=== PATIENT | female | born 1985 | race Caucasian/White ===

== ENCOUNTER 2016-11-11 15:04 | Emergency (ER) | payer MEDICARE, OTHER ==
[2016-11-11 15:44] LABS: BILIRUBIN NEGATIVE (NEGATIVE); BLOOD TRACE-INTACT Ery/uL (NEGATIVE); CLARITY CLEAR (CLEAR); COLOR YELLOW (YELLOW); GLUCOSE (U) NORMAL (NORMAL); KETONE (U) NEGATIVE (NEGATIVE); LEUKOCYTES NEGATIVE Leu/uL (NEGATIVE); NITRITE NEGATIVE (NEGATIVE); PROTEIN NEGATIVE (NEGATIVE); SPECIFIC GRAVITY >=1.030 (1.001-1.030); UROBILINOGEN 0.2 mg/dL (0.2-1.0)
[2016-11-11 15:45] LABS: BASOPHIL 0.7 % (0-2); EOSINOPHIL 1.7 % (0-5); HCT 39.6 % (37.0-47.0); HGB 12.8 g/dl (12.5-16.0); MCH 26.1 pg (25.0-31.0); MCHC 32.3 g/dL (32.0-36.0); MCV 80.8 fL (78.0-100.0); MONOCYTE 10.9 % (0-12); MPV 10.1 fL (6.0-9.5); NEUTROPHIL 49.7 % (41-80); PLT 363 K/uL (150-400); RDW 15.4 % (11.5-14.0); WBC 6.1 K/uL (4.0-10.5)
[2016-11-11 15:52] LABS: URINARY RBC RARE
[2016-11-11 15:53] LABS: BACTERIA TRACE; MUCOUS MODERATE; SQUAMOUS EPITHELIAL CELLS RARE
[2016-11-11 16:04] LABS: ALBUMIN 4.4 g/dL (3.5-5.0); BILIRUBIN - TOTAL 0.2 mg/dL (0.1-1.0); GLOBULIN (CALCULATION) 2.9 g/dL (2.2-4.2); POTASSIUM 3.7 mmol/L (3.5-5.1); TOTAL PROTEIN 7.3 g/dL (6.4-8.3)
== END 2016-11-11 17:15 | disposition home or self-care (01) ==
LOC: FER 15:04
PROVIDERS: Nurse Practitioner Family
DX: N39.0 Urinary tract infection, site not specified (principal); K21.9 Gastro-esophageal reflux disease without esophagitis; F31.9 Bipolar disorder, unspecified; G40.909 Epilepsy, unspecified, not intractable, without status epilepticus; Z88.8 Allergy status to other drugs, medicaments and biological substances; Z79.899 Other long term (current) drug therapy
CPT/HCPCS: 36415; 80053; 81001; 82150; 83690; 85025; J2405

== ENCOUNTER 2020-09-03 12:04 | Emergency (ER) | payer MEDICARE, OTHER ==
[~2020-09-03 12:04] MED LIST: ANTIVERT25 MG PO; AUGMENTIN250 MG PO; BACLOFEN 10MG T10 MG PO; BACTRIM DS TAB1 EACH PO; BENTYL10 MG PO; BUSPAR5 MG PO; CARTIA XT120 MG PO; CHLORZOXAZONE500 MG PO; COMPAZINE10 MG PO; COMPAZINE25 MG PR; FIORICET1 EACH PO; FLEXERIL10 MG PO; HEARTBURN TREAT15 MG PO; KEPPRA1000 MG PO; LAMICTAL100 MG PO; LODINE400 MG PO; LOPRESSOR25 MG PO; LYRICA 50MG CAP50 MG PO; LYRICA100 MG PO; LYRICA25 MG PO; LYRICA75 MG PO; MACROBID100 MG PO; MEDROL 4MG DOSEP4 MG PO; MELOXICAM15 MG PO; MOBIC7.5 MG PO; MONO-LINYAH 281 EACH PO; NAPROXEN500 MG PO; NITROFURANTOIN100 M1 PO; NORCO 5-325 TA1 EACH PO; NORCO 5/3251 EACH PO; NORVASC2.5 MG PO; PHENERGAN25 M1 PO; PRILOSEC20 MG PO; PROMETHEGA12.5 MG/SU PR; PROZAC20 MG PO; REGLAN10 MG PO; REGLAN5 MG PO; REMERON15 MG PO; RIZATRIPTAN10 MG PO; ROBAXIN500 MG PO; SEROQUEL 100MG100 MG PO; SINGULAIR10 MG PO; TESSALON PERLE100 MG PO; TOPAMAX50 MG PO; VENTOLIN HFA IN18 GM INH; XANAX0.5 MG PO; ZANTAC150 MG PO; ZOFRAN ODT4 MG PO; ZOFRAN4 MG PO; ZPAK PO
[2020-09-03] MEDS ORDERED: DICLOFENAC SODI75 MG PO (13:41)
[2020-11-11] MEDS ORDERED: MELATONIN3 MG PO (15:35)
[2020-11-11] MEDS ORDERED: DICLOFENAC SODI50 MG PO (15:35)
[2021-01-28] MEDS ORDERED: VOLTAREN **OUT50 MG PO (15:06)
== END 2020-09-03 14:05 | disposition home or self-care (01) ==
LOC: FER 12:04
DX: S30.850A Superficial foreign body of lower back and pelvis, initial encounter (principal); G89.29 Other chronic pain; R11.2 Nausea with vomiting, unspecified; Z88.1 Allergy status to other antibiotic agents; W45.8XXA Other foreign body or object entering through skin, initial encounter
CPT/HCPCS: 99283; J1885

== ENCOUNTER 2020-10-26 20:21 | Emergency (ER) | payer MEDICARE, OTHER ==
[~2020-10-26 20:21] MED LIST changes: +DICLOFENAC SODI75 MG PO
[2020-11-11] MEDS ORDERED: MELATONIN3 MG PO (15:35)
[2020-11-11] MEDS ORDERED: DICLOFENAC SODI50 MG PO (15:35)
[2021-01-28] MEDS ORDERED: VOLTAREN **OUT50 MG PO (15:06)
== END 2020-10-26 22:33 | disposition home or self-care (01) ==
LOC: FER 20:21
DX: S16.1XXA Strain of muscle, fascia and tendon at neck level, initial encounter (principal); R51.9 Headache, unspecified; I10 Essential (primary) hypertension; G40.909 Epilepsy, unspecified, not intractable, without status epilepticus; Z88.8 Allergy status to other drugs, medicaments and biological substances; Z79.899 Other long term (current) drug therapy; W18.2XXA Fall in (into) shower or empty bathtub, initial encounter
CPT/HCPCS: 96372; 99283; J1100; J1885

== ENCOUNTER 2021-02-02 17:55 | Emergency (ER) | payer MEDICARE, OTHER ==
[~2021-02-02 17:55] MED LIST changes: +DICLOFENAC SODI50 MG PO; +MELATONIN3 MG PO; +VOLTAREN **OUT50 MG PO
[2021-02-02 19:08] LABS: BASOPHIL 0.6 % (0-2); EOSINOPHIL 0 % (0-5); HCT 38.1 % (37.0-47.0); HGB 11.9 g/dl (12.5-16.0); LYMPHOCYTE 25.8 % (15-48); MCH 23.9 pg (25.0-31.0); MCHC 31.2 g/dL (32.0-36.0); MCV 76.5 fL (78.0-100.0); MONOCYTE 8.6 % (0-12); NEUTROPHIL 64.8 % (41-80); NRBC 0; PLT 411 K/uL (150-400); RBC 4.98 M/uL (4.20-5.40); WBC 9.5 K/uL (4.0-10.5)
[2021-02-02 19:30] LABS: CREATININE 1.18 mg/dL (0.51-0.95)
[2021-02-02] MEDS ORDERED: FIORICET1 EACH PO (20:42)
== END 2021-02-02 21:14 | disposition home or self-care (01) ==
LOC: FER 17:55
PROVIDERS: Nurse Practitioner Family
DX: R51.9 Headache, unspecified (principal); E11.65 Type 2 diabetes mellitus with hyperglycemia; R42 Dizziness and giddiness; I10 Essential (primary) hypertension; Z79.899 Other long term (current) drug therapy
CPT/HCPCS: 36415; 80048; 85025; J1885; J2405; J7030

== ENCOUNTER 2021-02-04 19:18 | Day surgery (SDCO) | payer MEDICARE, OTHER ==
[~2021-02-04] VITALS: Ht 157.5 cm; Wt 126.2 kg
[2021-02-04 21:36] LABS: BASOPHIL 0.8 % (0-2); EOSINOPHIL 0 % (0-5); HCT 36.7 % (37.0-47.0); HGB 11.5 g/dl (12.5-16.0); LYMPHOCYTE 25.8 % (15-48); MCH 23.8 pg (25.0-31.0); MCHC 31.3 g/dL (32.0-36.0); MCV 75.8 fL (78.0-100.0); MONOCYTE 7.5 % (0-12); MPV 9.9 fL (6.0-9.5); NEUTROPHIL 65.7 % (41-80); NRBC 0; PLT 381 K/uL (150-400); RBC 4.84 M/uL (4.20-5.40); WBC 9.2 K/uL (4.0-10.5)
[2021-02-04 21:59] LABS: CREATININE 1.06 mg/dL (0.51-0.95); POTASSIUM 4.2 mmol/L (3.5-5.1)
[2021-02-05] MEDS ORDERED: PHENERGAN25 M1 PO (03:13)
[2021-02-05] MEDS ORDERED: PERCOCET 5-3251 EACH PO (03:13)
[2021-02-05 04:23] LABS: BILIRUBIN 1+ mg/dL (NEGATIVE); BLOOD NEGATIVE Ery/uL (NEGATIVE); COLOR YELLOW (YELLOW); GLUCOSE (U) NORMAL (NORMAL); LEUKOCYTES NEGATIVE Leu/uL (NEGATIVE); NITRITE NEGATIVE (NEGATIVE); PROTEIN NEGATIVE (NEGATIVE); SPECIFIC GRAVITY >=1.030 (1.001-1.030); UROBILINOGEN 0.2 mg/dL (0.2-1.0)
[2021-02-05 04:25] LABS: CLARITY SLIGHTLY HAZY (CLEAR)
[2021-02-05 05:40] LABS: CREATININE 0.99 mg/dL (0.51-0.95); POTASSIUM 4.6 mmol/L (3.5-5.1)
[2021-02-05 05:41] LABS: ALBUMIN 3.2 g/dL (3.4-5.0); BILIRUBIN - TOTAL 0.5 mg/dL (0.2-1.0); GLOBULIN (CALCULATION) 3.7 g/dL; TOTAL PROTEIN 6.9 g/dL (6.4-8.2)
[2021-02-06 06:24] LABS: BASOPHIL 0.8 % (0-2); EOSINOPHIL 0 % (0-5); HCT 31.1 % (37.0-47.0); HGB 9.5 g/dl (12.5-16.0); LYMPHOCYTE 34.1 % (15-48); MCHC 30.5 g/dL (32.0-36.0); MCV 78.5 fL (78.0-100.0); MONOCYTE 9.5 % (0-12); NEUTROPHIL 55.3 % (41-80); NRBC 0; PLT 304 K/uL (150-400); RBC 3.96 M/uL (4.20-5.40); WBC 7.2 K/uL (4.0-10.5)
[2021-02-06 07:01] LABS: ALBUMIN 3.1 g/dL (3.4-5.0); BILIRUBIN - TOTAL 0.4 mg/dL (0.2-1.0); CREATININE 0.93 mg/dL (0.51-0.95); GLOBULIN (CALCULATION) 3.5 g/dL; MAGNESIUM 2.2 mg/dL (1.8-2.4); POTASSIUM 3.7 mmol/L (3.5-5.1); TOTAL PROTEIN 6.6 g/dL (6.4-8.2)
--- NOTE | 2021-02-06 14:48 | NUR ---
PT. TO D/C HOME THIS DATE. SHE REQUESTS [facility]. NO NEEDS.
[2021-02-06] MEDS ORDERED: MUCINEX 600MG600 MG PO (16:46)
[2021-02-06] MEDS ORDERED: PERCOCET 5-3251 EACH PO (16:46)
[2021-02-06] MEDS ORDERED: CLARITIN10 MG PO (16:46)
== END 2021-02-06 17:40 | disposition home or self-care (01) ==
LOC: FER 19:18 → FTCU 02-05 06:09
PROVIDERS: Emergency Medicine Emergency Medical Services; Hospitalist; Nurse Practitioner Family; ADMIT Internal Medicine
DX: R42 Dizziness and giddiness (principal); R11.2 Nausea with vomiting, unspecified; T21.04XA Burn of unspecified degree of lower back, initial encounter; T79.8XXA Other early complications of trauma, initial encounter; E86.0 Dehydration; R07.89 Other chest pain; I10 Essential (primary) hypertension; G40.909 Epilepsy, unspecified, not intractable, without status epilepticus; G80.9 Cerebral palsy, unspecified; R74.01 Elevation of levels of liver transaminase levels; G89.29 Other chronic pain; M54.9 Dorsalgia, unspecified; K74.60 Unspecified cirrhosis of liver; J45.909 Unspecified asthma, uncomplicated; D64.9 Anemia, unspecified; E66.9 Obesity, unspecified; Z68.43 Body mass index [BMI] 50.0-59.9, adult; Z86.14 Personal history of Methicillin resistant Staphylococcus aureus infection; Z79.899 Other long term (current) drug therapy; Z98.2 Presence of cerebrospinal fluid drainage device; Z20.822 Contact with and (suspected) exposure to COVID-19; X16.XXXA Contact with hot heating appliances, radiators and pipes, initial encounter
CPT/HCPCS: 36415; 36600; 70450; 71250; 80048; 80053; 81003; 82803; 82962; 83605; 83735; 83880; 84484; 85025; 87088; 93005; 96365; 96366; 96375; 96376; C9113; G0378; J1100; J1170; J1650; J1885; J2270; J2550; J7030; J7040; Q0169; U0002

== ENCOUNTER 2021-02-16 16:41 | Emergency (ER) | payer MEDICARE, OTHER ==
[~2021-02-16 16:41] MED LIST changes: +CLARITIN10 MG PO; +MUCINEX 600MG600 MG PO; +PERCOCET 5-3251 EACH PO
[2021-03-25] MEDS ORDERED: CELEBREX 200MG200 MG PO (11:24)
[2021-03-25] MEDS ORDERED: TIZANIDINE HCL2 M1 PO (11:24)
== END 2021-02-16 20:56 | disposition home or self-care (01) ==
LOC: FER 16:41
DX: T21.03XD Burn of unspecified degree of upper back, subsequent encounter (principal); T21.04XD Burn of unspecified degree of lower back, subsequent encounter; I10 Essential (primary) hypertension; E10.9 Type 1 diabetes mellitus without complications
CPT/HCPCS: 99282

== ENCOUNTER 2021-02-18 20:04 | Emergency (ER) | payer MEDICARE, OTHER ==
[2021-02-18 22:26] LABS: BILIRUBIN NEGATIVE (NEGATIVE); BLOOD NEGATIVE Ery/uL (NEGATIVE); CLARITY CLEAR (CLEAR); COLOR YELLOW (YELLOW); GLUCOSE (U) NORMAL (NORMAL); LEUKOCYTES NEGATIVE Leu/uL (NEGATIVE); NITRITE NEGATIVE (NEGATIVE); PROTEIN NEGATIVE (NEGATIVE); UROBILINOGEN 0.2 mg/dL (0.2-1.0)
[2021-02-18 23:03] LABS: BASOPHIL 0.4 % (0-2); EOSINOPHIL 0 % (0-5); HGB 10.9 g/dl (12.5-16.0); LYMPHOCYTE 30.4 % (15-48); MCH 23.5 pg (25.0-31.0); MCHC 31.1 g/dL (32.0-36.0); MCV 75.6 fL (78.0-100.0); MONOCYTE 7.9 % (0-12); MPV 10.1 fL (6.0-9.5); NEUTROPHIL 61.1 % (41-80); NRBC 0; PLT 372 K/uL (150-400); RBC 4.63 M/uL (4.20-5.40); RDW 17.7 % (11.5-14.0); WBC 8.4 K/uL (4.0-10.5)
[2021-02-18 23:21] LABS: CREATININE 0.94 mg/dL (0.51-0.95); POTASSIUM 3.5 mmol/L (3.5-5.1)
[2021-03-25] MEDS ORDERED: TIZANIDINE HCL2 M1 PO (11:24)
[2021-03-25] MEDS ORDERED: CELEBREX 200MG200 MG PO (11:24)
== END 2021-02-19 00:08 | disposition home or self-care (01) ==
LOC: FER 20:04
PROVIDERS: Nurse Practitioner Family
DX: R10.2 Pelvic and perineal pain (principal); R30.0 Dysuria; G40.909 Epilepsy, unspecified, not intractable, without status epilepticus; E11.9 Type 2 diabetes mellitus without complications; I10 Essential (primary) hypertension; Z98.2 Presence of cerebrospinal fluid drainage device; Z79.899 Other long term (current) drug therapy; Z90.49 Acquired absence of other specified parts of digestive tract
CPT/HCPCS: 36415; 80048; 81003; 85025; J2270; J7030

== ENCOUNTER 2021-03-09 23:01 | Emergency (ER) | payer MEDICARE, OTHER ==
[2021-03-09 23:54] LABS: BASOPHIL 0.6 % (0-2); EOSINOPHIL 4.1 % (0-5); HCT 40.5 % (37.0-47.0); HGB 12.4 g/dl (12.5-16.0); MCH 23.3 pg (25.0-31.0); MCHC 30.6 g/dL (32.0-36.0); MCV 76.1 fL (78.0-100.0); MONOCYTE 6.7 % (0-12); MPV 9.9 fL (6.0-9.5); NEUTROPHIL 74.4 % (41-80); NRBC 0; PLT 424 K/uL (150-400); RBC 5.32 M/uL (4.20-5.40); RDW 18.9 % (11.5-14.0); WBC 8.9 K/uL (4.0-10.5)
[2021-03-09 23:55] LABS: BILIRUBIN - TOTAL 0.3 mg/dL (0.2-1.0); BUN/CREAT RATIO (CALC) 12.5 RATIO; C-REACTIVE PROTEIN 1.7 mg/dL (<=0.90); CREATININE 1.04 mg/dL (0.51-0.95); GLOBULIN (CALCULATION) 4.2 g/dL; POTASSIUM 3.4 mmol/L (3.5-5.1); TOTAL PROTEIN 8.2 g/dL (6.4-8.2)
[2021-03-10] MEDS ORDERED: PYRIDIUM200 MG PO (02:22)
[2021-03-10] MEDS ORDERED: ONDANSETRON ODT4 MG SL (02:22)
[2021-03-10] MEDS ORDERED: BENTYL10 MG PO (02:22)
[2021-03-10] MEDS ORDERED: VIBRAMYCIN100 MG PO (02:22)
[2021-03-10] MEDS ORDERED: PERCOCET 5-3251 EACH PO (02:22)
[2021-03-10 02:24] LABS: BILIRUBIN 1+ mg/dL (NEGATIVE); BLOOD NEGATIVE Ery/uL (NEGATIVE); CLARITY CLOUDY (CLEAR); COLOR YELLOW (YELLOW); GLUCOSE (U) NORMAL (NORMAL); LEUKOCYTES NEGATIVE Leu/uL (NEGATIVE); NITRITE NEGATIVE (NEGATIVE); PROTEIN NEGATIVE (NEGATIVE); SPECIFIC GRAVITY >=1.030 (1.001-1.030); UROBILINOGEN 0.2 mg/dL (0.2-1.0); pH 5.5 (5.0-9.0)
[2021-03-25] MEDS ORDERED: CELEBREX 200MG200 MG PO (11:24)
[2021-03-25] MEDS ORDERED: TIZANIDINE HCL2 M1 PO (11:24)
== END 2021-03-10 02:37 | disposition home or self-care (01) ==
LOC: FER 23:01
PROVIDERS: Emergency Medicine Emergency Medical Services
DX: N30.00 Acute cystitis without hematuria (principal); R19.7 Diarrhea, unspecified; R51.9 Headache, unspecified; Z20.822 Contact with and (suspected) exposure to COVID-19; I10 Essential (primary) hypertension; J45.909 Unspecified asthma, uncomplicated
CPT/HCPCS: 36415; 74018; 80053; 81003; 85025; 86140; 96372; J0500; J0696; J1170; J1885; J2405; J7120; U0002

== ENCOUNTER 2021-03-27 11:08 | Emergency (ER) | payer MEDICARE, OTHER ==
[~2021-03-27 11:08] MED LIST changes: +CELEBREX 200MG200 MG PO; +ONDANSETRON ODT4 MG SL; +PYRIDIUM200 MG PO; +TIZANIDINE HCL2 M1 PO; +VIBRAMYCIN100 MG PO
[2021-03-27 13:55] LABS: BILIRUBIN NEGATIVE (NEGATIVE); BLOOD NEGATIVE Ery/uL (NEGATIVE); CLARITY CLEAR (CLEAR); COLOR YELLOW (YELLOW); GLUCOSE (U) NORMAL (NORMAL); LEUKOCYTES NEGATIVE Leu/uL (NEGATIVE); NITRITE NEGATIVE (NEGATIVE); PROTEIN NEGATIVE (NEGATIVE); SPECIFIC GRAVITY 1.015 (1.001-1.030); UROBILINOGEN 0.2 mg/dL (0.2-1.0); pH 6.5 (5.0-9.0)
[2021-03-27 14:13] LABS: BASOPHIL 0.7 % (0-2); EOSINOPHIL 2.1 % (0-5); HCT 35.8 % (37.0-47.0); HGB 10.9 g/dl (12.5-16.0); LYMPHOCYTE 37.7 % (15-48); MCHC 30.4 g/dL (32.0-36.0); MCV 75.7 fL (78.0-100.0); MONOCYTE 6.3 % (0-12); NEUTROPHIL 52.7 % (41-80); NRBC 0; PLT 346 K/uL (150-400); RBC 4.73 M/uL (4.20-5.40); WBC 6.1 K/uL (4.0-10.5)
[2021-03-27 14:31] LABS: ALBUMIN 3.2 g/dL (3.4-5.0); BILIRUBIN - TOTAL 0.3 mg/dL (0.2-1.0); BUN/CREAT RATIO (CALC) 28.8 RATIO; CREATININE 0.8 mg/dL (0.51-0.95); GLOBULIN (CALCULATION) 3.7 g/dL; POTASSIUM 4.2 mmol/L (3.5-5.1); TOTAL PROTEIN 6.9 g/dL (6.4-8.2)
== END 2021-03-27 17:50 | disposition home or self-care (01) ==
LOC: FER 11:08
PROVIDERS: Physician Assistant
DX: R10.31 Right lower quadrant pain (principal); R10.32 Left lower quadrant pain; R11.0 Nausea; R19.7 Diarrhea, unspecified; I10 Essential (primary) hypertension; Z90.49 Acquired absence of other specified parts of digestive tract; Z90.89 Acquired absence of other organs
CPT/HCPCS: 36415; 74018; 80053; 81003; 83690; 85025; J1885; Q9967

== ENCOUNTER 2021-04-10 19:11 | Emergency (ER) | payer MEDICARE, OTHER ==
[2021-04-11] MEDS ORDERED: SUMATRIPTAN-NA1 EACH PO (00:54)
== END 2021-04-11 01:05 | disposition home or self-care (01) ==
LOC: FER 19:11
DX: R51.9 Headache, unspecified (principal); Z86.69 Personal history of other diseases of the nervous system and sense organs; Z98.2 Presence of cerebrospinal fluid drainage device; W10.9XXA Fall (on) (from) unspecified stairs and steps, initial encounter; W22.8XXA Striking against or struck by other objects, initial encounter; Y92.009 Unspecified place in unspecified non-institutional (private) residence as the place of occurrence of the external cause
CPT/HCPCS: 70450; 71045; 72125; 74018; J0780; J1200; J1885; J2001; J7030

== ENCOUNTER 2021-04-20 17:40 | Emergency (ER) | payer MEDICARE, OTHER ==
[~2021-04-20 17:40] MED LIST changes: +SUMATRIPTAN-NA1 EACH PO
[2021-04-20 20:58] LABS: BASOPHIL 0.4 % (0-2); EOSINOPHIL 0 % (0-5); HCT 36.7 % (37.0-47.0); LYMPHOCYTE 21.9 % (15-48); MCH 23.4 pg (25.0-31.0); MCV 77.9 fL (78.0-100.0); MONOCYTE 6.6 % (0-12); MPV 10.1 fL (6.0-9.5); NEUTROPHIL 70.8 % (41-80); NRBC 0; PLT 385 K/uL (150-400); RBC 4.71 M/uL (4.20-5.40); RDW 18.9 % (11.5-14.0); WBC 11.1 K/uL (4.0-10.5)
[2021-04-20 21:21] LABS: ALBUMIN 3.3 g/dL (3.4-5.0); ALKALINE PHOSHATASE 379 U/L (46-116); ALT 128 U/L (14-59); AST 88 U/L (15-37); BILIRUBIN - TOTAL 0.2 mg/dL (0.2-1.0); BUN 32 mg/dL (7-18); BUN/CREAT RATIO (CALC) 42.7 RATIO; C-REACTIVE PROTEIN <0.20 mg/dL (<=0.90); CHLORIDE 106 mmol/L (98-107); CO2 (BICARBONATE) 25 mmol/L (21-32); CREATININE 0.75 mg/dL (0.51-0.95); GLOBULIN (CALCULATION) 3.8 g/dL; GLUCOSE 87 mg/dL (74-106); LDH 277 U/L (81-234); MAGNESIUM 2.3 mg/dL (1.8-2.4); POTASSIUM 4.1 mmol/L (3.5-5.1); TOTAL PROTEIN 7.1 g/dL (6.4-8.2)
[2021-04-20 21:23] LABS: PRO-BNP 42 pg/mL (<125)
[2021-04-20] MEDS ORDERED: FIORICET1 EACH PO (22:03)
== END 2021-04-20 22:59 | disposition home or self-care (01) ==
LOC: FER 17:40
PROVIDERS: Emergency Medicine
DX: R07.89 Other chest pain (principal); R51.9 Headache, unspecified
CPT/HCPCS: 36415; 71045; 80053; 83615; 83735; 83880; 84484; 85025; 86140; 93005; J1170; J2405

== ENCOUNTER 2021-04-23 12:44 | Emergency (ER) | payer MEDICARE, OTHER ==
[2021-04-23 15:32] LABS: BASOPHIL 0.3 % (0-2); EOSINOPHIL 0 % (0-5); HCT 35.6 % (37.0-47.0); HGB 10.9 g/dl (12.5-16.0); LYMPHOCYTE 24.5 % (15-48); MCH 23.6 pg (25.0-31.0); MCHC 30.6 g/dL (32.0-36.0); MCV 77.2 fL (78.0-100.0); MONOCYTE 8.5 % (0-12); NEUTROPHIL 66.5 % (41-80); NRBC 0; PLT 336 K/uL (150-400); RBC 4.61 M/uL (4.20-5.40); RDW 19.1 % (11.5-14.0); WBC 8.7 K/uL (4.0-10.5)
[2021-04-23 15:51] LABS: BUN/CREAT RATIO (CALC) 24.1 RATIO; CREATININE 0.79 mg/dL (0.51-0.95)
[2021-04-23] MEDS ORDERED: PHENERGAN25 M1 PO (16:55)
== END 2021-04-23 17:54 | disposition home or self-care (01) ==
LOC: FER 12:44
PROVIDERS: Emergency Medicine
DX: R51.9 Headache, unspecified (principal); R11.2 Nausea with vomiting, unspecified
CPT/HCPCS: 36415; 70450; 80048; 85025; J1170; J1885; J2405; J7030

== ENCOUNTER 2021-05-11 21:14 | Emergency (ER) | payer MEDICARE, OTHER ==
[2021-05-11 23:57] LABS: BASOPHIL 0.3 % (0-2); EOSINOPHIL 0.1 % (0-5); HCT 35.5 % (37.0-47.0); HGB 10.9 g/dl (12.5-16.0); LYMPHOCYTE 25.6 % (15-48); MCH 24.1 pg (25.0-31.0); MCHC 30.7 g/dL (32.0-36.0); MCV 78.4 fL (78.0-100.0); MONOCYTE 8.9 % (0-12); MPV 9.7 fL (6.0-9.5); NEUTROPHIL 64.2 % (41-80); NRBC 0; PLT 400 K/uL (150-400); RBC 4.53 M/uL (4.20-5.40); RDW 20.8 % (11.5-14.0)
[2021-05-12 00:33] LABS: CORONAVIRUS 2019 SARS-COV-2 NEGATIVE (NEGATIVE); INFLUENZA A NAA NEGATIVE (NEGATIVE)
[2021-05-12 00:38] LABS: ALBUMIN 3.1 g/dL (3.4-5.0); BILIRUBIN - TOTAL 0.3 mg/dL (0.2-1.0); BUN/CREAT RATIO (CALC) 19.4 RATIO; CREATININE 1.08 mg/dL (0.51-0.95); GLOBULIN (CALCULATION) 4.3 g/dL; POTASSIUM 3.5 mmol/L (3.5-5.1); TOTAL PROTEIN 7.4 g/dL (6.4-8.2)
[2021-05-12] MEDS ORDERED: COMPAZINE10 MG PO (02:58)
[2021-05-12] MEDS ORDERED: ANTIVERT25 MG PO (02:58)
== END 2021-05-12 03:05 | disposition home or self-care (01) ==
LOC: FER 21:14
PROVIDERS: Emergency Medicine Emergency Medical Services
DX: R51.9 Headache, unspecified (principal); R42 Dizziness and giddiness; R55 Syncope and collapse; Z20.822 Contact with and (suspected) exposure to COVID-19
CPT/HCPCS: 36415; 70450; 71045; 72125; 72128; 72131; 72192; 80053; 84484; 85025; 86140; 93005; J0780; J1200; J1885; J2270; J2405; J7030; U0002

== ENCOUNTER 2021-06-13 20:53 | Emergency (ER) | payer MEDICARE, OTHER ==
[~2021-06-13 20:53] MED LIST changes: +TIZANIDINE HCL4 MG PO
[2021-06-13 22:30] LABS: BILIRUBIN NEGATIVE (NEGATIVE); BLOOD NEGATIVE Ery/uL (NEGATIVE); CLARITY CLEAR (CLEAR); COLOR YELLOW (YELLOW); GLUCOSE (U) NORMAL (NORMAL); LEUKOCYTES NEGATIVE Leu/uL (NEGATIVE); NITRITE NEGATIVE (NEGATIVE); PROTEIN NEGATIVE (NEGATIVE); SPECIFIC GRAVITY >=1.030 (1.001-1.030); UROBILINOGEN 0.2 mg/dL (0.2-1.0); pH 5.5 (5.0-9.0)
[2021-06-13 22:42] LABS: BASOPHIL 0.5 % (0-2); EOSINOPHIL 0 % (0-5); HCT 33.6 % (37.0-47.0); HGB 10.2 g/dl (12.5-16.0); LYMPHOCYTE 33.6 % (15-48); MCH 24.1 pg (25.0-31.0); MCHC 30.4 g/dL (32.0-36.0); MCV 79.2 fL (78.0-100.0); MONOCYTE 9.8 % (0-12); MPV 9.6 fL (6.0-9.5); NEUTROPHIL 55.8 % (41-80); NRBC 0; PLT 321 K/uL (150-400); RBC 4.24 M/uL (4.20-5.40); RDW 18.4 % (11.5-14.0); WBC 5.8 K/uL (4.0-10.5)
[2021-06-13 22:53] LABS: INR 1.01 (0.9-1.2); PROTHROMBIN TIME 12.7 SECONDS (11.8-13.4); PTT 24.8 SECONDS (24.4-34.7)
[2021-06-13 23:12] LABS: ALBUMIN 3.2 g/dL (3.4-5.0); BILIRUBIN - TOTAL 0.5 mg/dL (0.2-1.0); BUN/CREAT RATIO (CALC) 11.5 RATIO; C-REACTIVE PROTEIN 0.6 mg/dL (<=0.90); CREATININE 0.96 mg/dL (0.51-0.95); GLOBULIN (CALCULATION) 3.7 g/dL; MAGNESIUM 1.9 mg/dL (1.8-2.4); POTASSIUM 3.9 mmol/L (3.5-5.1); TOTAL PROTEIN 6.9 g/dL (6.4-8.2)
[2021-06-13 23:30] LABS: LACTIC ACID 0.6 mmol/L (0.4-1.9)
== END 2021-06-14 01:28 | disposition home or self-care (01) ==
LOC: FER 20:53
PROVIDERS: Emergency Medicine
DX: R19.7 Diarrhea, unspecified (principal); M25.551 Pain in right hip; M25.552 Pain in left hip; Z20.822 Contact with and (suspected) exposure to COVID-19
CPT/HCPCS: 36415; 80053; 81003; 82728; 83605; 83690; 83735; 84145; 84443; 85025; 85610; 85730; 86140; J2270; J2550; J7030; Q9967; U0002

== ENCOUNTER 2021-06-17 10:21 | Emergency (ER) | payer MEDICARE, OTHER ==
[2021-06-17] MEDS ORDERED: NAPROXEN500 MG PO (12:27)
== END 2021-06-17 12:46 | disposition home or self-care (01) ==
LOC: FER 10:21
DX: M25.561 Pain in right knee (principal); I10 Essential (primary) hypertension; E11.9 Type 2 diabetes mellitus without complications; J45.909 Unspecified asthma, uncomplicated
CPT/HCPCS: 73560; 76881

== ENCOUNTER 2021-06-26 21:08 | Emergency (ER) | payer MEDICARE, OTHER ==
[2021-06-26] MEDS ORDERED: ZOFRAN4 M1 PO (23:00)
[2021-06-26] MEDS ORDERED: AUGMENTIN 875-1 EACH PO (23:00)
[2021-06-26 23:39] LABS: BASOPHIL 0.2 % (0-2); EOSINOPHIL 0 % (0-5); HCT 40.6 % (37.0-47.0); HGB 12.6 g/dl (12.5-16.0); LYMPHOCYTE 19.5 % (15-48); MCV 77.2 fL (78.0-100.0); MONOCYTE 10.8 % (0-12); NEUTROPHIL 69.2 % (41-80); NRBC 0; PLT 464 K/uL (150-400); RBC 5.26 M/uL (4.20-5.40); RDW 19.3 % (11.5-14.0); WBC 6.4 K/uL (4.0-10.5)
[2021-06-27 00:12] LABS: BILIRUBIN 2+ mg/dL (NEGATIVE); BLOOD NEGATIVE Ery/uL (NEGATIVE); COLOR YELLOW (YELLOW); GLUCOSE (U) NORMAL (NORMAL); LEUKOCYTES NEGATIVE Leu/uL (NEGATIVE); NITRITE NEGATIVE (NEGATIVE); PROTEIN TRACE (LOW) mg/dL (NEGATIVE); SPECIFIC GRAVITY >=1.030 (1.001-1.030)
[2021-06-27 00:15] LABS: CLARITY CLOUDY (CLEAR)
[2021-06-27 01:00] LABS: ALBUMIN 4.1 g/dL (3.4-5.0); BILIRUBIN - TOTAL 1.1 mg/dL (0.2-1.0); CREATININE 0.71 mg/dL (0.51-0.95); GLOBULIN (CALCULATION) 4.4 g/dL; POTASSIUM 6.3 mmol/L (3.5-5.1); TOTAL PROTEIN 8.5 g/dL (6.4-8.2)
== END 2021-06-27 02:43 | disposition home or self-care (01) ==
LOC: FER 21:08
PROVIDERS: Emergency Medicine
DX: G43.909 Migraine, unspecified, not intractable, without status migrainosus (principal); H66.91 Otitis media, unspecified, right ear
CPT/HCPCS: 36415; 70450; 71045; 74018; 80053; 81003; 83690; 84484; 85025; 93005; J0780; J1100; J1200; J1885; J2405; J3475; J7030

== ENCOUNTER 2021-07-12 21:33 | Emergency (ER) | payer MEDICARE, OTHER ==
[~2021-07-12 21:33] MED LIST changes: +AUGMENTIN 875-1 EACH PO; +ZOFRAN4 M1 PO
[2021-07-12 23:16] LABS: BASOPHIL 0.1 % (0-2); EOSINOPHIL 0 % (0-5); HCT 33.2 % (37.0-47.0); HGB 10.1 g/dl (12.5-16.0); LYMPHOCYTE 36.8 % (15-48); MCH 23.9 pg (25.0-31.0); MCHC 30.4 g/dL (32.0-36.0); MCV 78.5 fL (78.0-100.0); MONOCYTE 7.1 % (0-12); MPV 10.7 fL (6.0-9.5); NEUTROPHIL 55.9 % (41-80); NRBC 0; PLT 345 K/uL (150-400); RBC 4.23 M/uL (4.20-5.40); RDW 18.1 % (11.5-14.0); WBC 7.1 K/uL (4.0-10.5)
[2021-07-12 23:17] LABS: BILIRUBIN NEGATIVE (NEGATIVE); BLOOD NEGATIVE Ery/uL (NEGATIVE); CLARITY CLEAR (CLEAR); COLOR YELLOW (YELLOW); GLUCOSE (U) NORMAL (NORMAL); LEUKOCYTES NEGATIVE Leu/uL (NEGATIVE); NITRITE NEGATIVE (NEGATIVE); PROTEIN NEGATIVE (NEGATIVE); UROBILINOGEN 0.2 mg/dL (0.2-1.0); pH 6.5 (5.0-9.0)
[2021-07-12 23:36] LABS: ALBUMIN 3.2 g/dL (3.4-5.0); BILIRUBIN - TOTAL 0.2 mg/dL (0.2-1.0); BUN/CREAT RATIO (CALC) 25.6 RATIO; CREATININE 0.86 mg/dL (0.51-0.95); POTASSIUM 4.5 mmol/L (3.5-5.1); TOTAL PROTEIN 6.2 g/dL (6.4-8.2)
== END 2021-07-13 01:25 | disposition home or self-care (01) ==
LOC: FER 21:33
PROVIDERS: Nurse Practitioner Family
DX: R10.11 Right upper quadrant pain (principal); R10.31 Right lower quadrant pain
CPT/HCPCS: 36415; 80053; 81003; 85025; J2270; Q9967

== ENCOUNTER 2021-07-30 17:54 | Emergency (ER) | payer MEDICARE, OTHER | END 2021-07-31 02:30 | disposition home or self-care (01) | LOC: FER 17:54 | DX: G43.909 Migraine, unspecified, not intractable, without status migrainosus (principal); M25.551 Pain in right hip; M79.5 Residual foreign body in soft tissue | CPT/HCPCS: 70450; 71045; 73502; 74018; J0780; J1200; J1885; J7030 ==

== ENCOUNTER 2021-08-21 17:06 | Emergency (ER) | payer MEDICARE, OTHER | END 2021-08-21 23:15 | disposition home or self-care (01) | LOC: FER 17:06 | DX: G89.4 Chronic pain syndrome (principal); M54.50 Low back pain, unspecified; R51.9 Headache, unspecified; M25.551 Pain in right hip; W01.0XXA Fall on same level from slipping, tripping and stumbling without subsequent striking against object, initial encounter; Y92.009 Unspecified place in unspecified non-institutional (private) residence as the place of occurrence of the external cause | CPT/HCPCS: 72100; 72170; J1885 ==

== ENCOUNTER 2021-10-17 14:49 | Emergency (ER) | payer MEDICARE, OTHER ==
[2021-10-17 16:19] LABS: BILIRUBIN NEGATIVE (NEGATIVE); BLOOD NEGATIVE Ery/uL (NEGATIVE); CLARITY CLEAR (CLEAR); COLOR YELLOW (YELLOW); GLUCOSE (U) NORMAL (NORMAL); LEUKOCYTES NEGATIVE Leu/uL (NEGATIVE); NITRITE NEGATIVE (NEGATIVE); PROTEIN NEGATIVE (NEGATIVE); SPECIFIC GRAVITY >=1.030 (1.001-1.030); UROBILINOGEN 0.2 mg/dL (0.2-1.0)
== END 2021-10-17 17:17 | disposition home or self-care (01) ==
LOC: FER 14:49
PROVIDERS: Emergency Medicine
DX: R32 Unspecified urinary incontinence (principal); I10 Essential (primary) hypertension; Z79.899 Other long term (current) drug therapy
CPT/HCPCS: 81003; 99283

== ENCOUNTER 2021-11-09 18:45 | Emergency (ER) | payer MEDICARE, OTHER ==
[2021-11-09 20:46] LABS: BASOPHIL 0.3 % (0-2); EOSINOPHIL 0.2 % (0-5); HCT 34.5 % (37.0-47.0); HGB 10.3 g/dl (12.5-16.0); LYMPHOCYTE 37.4 % (15-48); MCH 21.6 pg (25.0-31.0); MCHC 29.9 g/dL (32.0-36.0); MCV 72.3 fL (78.0-100.0); MONOCYTE 9.4 % (0-12); MPV 9.7 fL (6.0-9.5); NEUTROPHIL 52.4 % (41-80); NRBC 0.3; PLT 394 K/uL (150-400); RBC 4.77 M/uL (4.20-5.40); RDW 18.8 % (11.5-14.0); WBC 6.6 K/uL (4.0-10.5)
[2021-11-09 21:11] LABS: ALBUMIN 3.7 g/dL (3.4-5.0); BILIRUBIN - TOTAL 0.5 mg/dL (0.2-1.0); BUN/CREAT RATIO (CALC) 16.9 RATIO; CREATININE 0.89 mg/dL (0.51-0.95); GLOBULIN (CALCULATION) 4.3 g/dL; POTASSIUM 3.5 mmol/L (3.5-5.1)
[2021-11-09 22:24] LABS: CORONAVIRUS 2019 SARS-COV-2 NEGATIVE (NEGATIVE); INFLUENZA A NAA NEGATIVE (NEGATIVE)
[2021-11-09 23:05] LABS: BILIRUBIN NEGATIVE (NEGATIVE); BLOOD NEGATIVE Ery/uL (NEGATIVE); CLARITY CLEAR (CLEAR); COLOR YELLOW (YELLOW); GLUCOSE (U) NORMAL (NORMAL); LEUKOCYTES NEGATIVE Leu/uL (NEGATIVE); NITRITE NEGATIVE (NEGATIVE); PROTEIN NEGATIVE (NEGATIVE); SPECIFIC GRAVITY 1.015 (1.001-1.030); UROBILINOGEN 0.2 mg/dL (0.2-1.0)
== END 2021-11-10 00:35 | disposition home or self-care (01) ==
LOC: FER 18:45
PROVIDERS: Internal Medicine
DX: R07.89 Other chest pain (principal); R94.5 Abnormal results of liver function studies; Z20.822 Contact with and (suspected) exposure to COVID-19
CPT/HCPCS: 36415; 71275; 80053; 81003; 83690; 84145; 84484; 85025; 93005; J2270; Q9967; U0002

== ENCOUNTER 2021-12-06 13:23 | Emergency (ER) | payer MEDICARE, OTHER ==
[2021-12-06 14:29] LABS: BILIRUBIN NEGATIVE (NEGATIVE); BLOOD 2+ Ery/uL (NEGATIVE); CLARITY CLEAR (CLEAR); COLOR YELLOW (YELLOW); GLUCOSE (U) NORMAL (NORMAL); LEUKOCYTES NEGATIVE Leu/uL (NEGATIVE); NITRITE NEGATIVE (NEGATIVE); PROTEIN NEGATIVE (NEGATIVE); UROBILINOGEN 0.2 mg/dL (0.2-1.0); pH 6.5 (5.0-9.0)
[2021-12-06 14:46] LABS: BASOPHIL 0.3 % (0-2); EOSINOPHIL 0 % (0-5); HCT 31.3 % (37.0-47.0); MCH 21.2 pg (25.0-31.0); MCHC 28.8 g/dL (32.0-36.0); MCV 73.8 fL (78.0-100.0); MONOCYTE 6.7 % (0-12); MPV 9.6 fL (6.0-9.5); NEUTROPHIL 67.7 % (41-80); NRBC 0; PLT 367 K/uL (150-400); RBC 4.24 M/uL (4.20-5.40); RDW 19.3 % (11.5-14.0)
[2021-12-06 15:10] LABS: ALBUMIN 3.4 g/dL (3.4-5.0); ALKALINE PHOSHATASE 209 U/L (46-116); ALT 82 U/L (14-59); AST 36 U/L (15-37); BILIRUBIN - TOTAL 0.3 mg/dL (0.2-1.0); BUN 22 mg/dL (7-18); BUN/CREAT RATIO (CALC) 24.7 RATIO; CHLORIDE 105 mmol/L (98-107); CO2 (BICARBONATE) 25 mmol/L (21-32); CREATININE 0.89 mg/dL (0.51-0.95); GLOBULIN (CALCULATION) 4.1 g/dL; GLUCOSE 88 mg/dL (74-106); POTASSIUM 3.8 mmol/L (3.5-5.1); TOTAL PROTEIN 7.5 g/dL (6.4-8.2)
== END 2021-12-06 16:06 | disposition home or self-care (01) ==
LOC: FER 13:23
PROVIDERS: Physician Assistant Medical
DX: R07.89 Other chest pain (principal); I10 Essential (primary) hypertension
CPT/HCPCS: 36415; 71045; 80053; 81001; 83880; 84484; 85025; 93005

== ENCOUNTER 2021-12-16 13:34 | Emergency (ER) | payer MEDICARE, OTHER ==
[2021-12-16 14:58] LABS: BASOPHIL 0.1 % (0-2); EOSINOPHIL 0 % (0-5); HCT 31.9 % (37.0-47.0); HGB 9.4 g/dl (12.5-16.0); LYMPHOCYTE 9.7 % (15-48); MCH 21.2 pg (25.0-31.0); MCHC 29.5 g/dL (32.0-36.0); MONOCYTE 3.4 % (0-12); MPV 9.8 fL (6.0-9.5); NEUTROPHIL 86.4 % (41-80); NRBC 0; PLT 417 K/uL (150-400); RBC 4.43 M/uL (4.20-5.40); RDW 18.9 % (11.5-14.0); WBC 11.3 K/uL (4.0-10.5)
[2021-12-16 15:01] LABS: BILIRUBIN NEGATIVE (NEGATIVE); BLOOD NEGATIVE Ery/uL (NEGATIVE); CLARITY CLEAR (CLEAR); COLOR YELLOW (YELLOW); GLUCOSE (U) 1+ mg/dL (NORMAL); LEUKOCYTES NEGATIVE Leu/uL (NEGATIVE); NITRITE NEGATIVE (NEGATIVE); PROTEIN NEGATIVE (NEGATIVE); SPECIFIC GRAVITY >=1.030 (1.001-1.030); UROBILINOGEN 0.2 mg/dL (0.2-1.0)
[2021-12-16 15:09] LABS: INR 1.03 (0.9-1.2); PROTHROMBIN TIME 12.9 SECONDS (11.8-13.4); PTT 23.4 SECONDS (24.4-34.7)
[2021-12-16 15:23] LABS: ALBUMIN 3.7 g/dL (3.4-5.0); BILIRUBIN - TOTAL 0.3 mg/dL (0.2-1.0); BUN/CREAT RATIO (CALC) 23.2 RATIO; CREATININE 0.82 mg/dL (0.51-0.95); GLOBULIN (CALCULATION) 4.4 g/dL; TOTAL PROTEIN 8.1 g/dL (6.4-8.2)
== END 2021-12-16 17:25 | disposition home or self-care (01) ==
LOC: FER 13:34
PROVIDERS: Physician Assistant
DX: D64.9 Anemia, unspecified (principal); R51.9 Headache, unspecified; I10 Essential (primary) hypertension; Z28.310 Unvaccinated for COVID-19
CPT/HCPCS: 36415; 70450; 80053; 81003; 85025; 85610; 85730; J1885

== ENCOUNTER 2021-12-25 10:36 | Emergency (ER) | payer MEDICARE, OTHER | END 2021-12-25 21:25 | disposition left against medical advice (07) | LOC: FER 10:36 | DX: Z53.21 Procedure and treatment not carried out due to patient leaving prior to being seen by health care provider (principal) ==

== ENCOUNTER 2021-12-25 14:13 | Emergency (ER) | payer MEDICARE, OTHER ==
[2021-12-25 18:53] LABS: BASOPHIL 0.4 % (0-2); EOSINOPHIL 0 % (0-5); HCT 30.9 % (37.0-47.0); HGB 8.9 g/dl (12.5-16.0); LYMPHOCYTE 33.6 % (15-48); MCHC 28.8 g/dL (32.0-36.0); MCV 72.9 fL (78.0-100.0); MONOCYTE 10.2 % (0-12); MPV 10.1 fL (6.0-9.5); NEUTROPHIL 55.5 % (41-80); NRBC 0; PLT 395 K/uL (150-400); RBC 4.24 M/uL (4.20-5.40); RDW 19.8 % (11.5-14.0); WBC 7.8 K/uL (4.0-10.5)
[2021-12-25 19:26] LABS: ALBUMIN 3.4 g/dL (3.4-5.0); BILIRUBIN - TOTAL 0.2 mg/dL (0.2-1.0); CREATININE 0.95 mg/dL (0.51-0.95); GLOBULIN (CALCULATION) 3.8 g/dL; POTASSIUM 3.8 mmol/L (3.5-5.1); TOTAL PROTEIN 7.2 g/dL (6.4-8.2)
[2021-12-25 19:47] LABS: BILIRUBIN NEGATIVE (NEGATIVE); BLOOD NEGATIVE Ery/uL (NEGATIVE); CLARITY CLEAR (CLEAR); COLOR YELLOW (YELLOW); GLUCOSE (U) NORMAL (NORMAL); LEUKOCYTES NEGATIVE Leu/uL (NEGATIVE); NITRITE NEGATIVE (NEGATIVE); PROTEIN TRACE (LOW) mg/dL (NEGATIVE); SPECIFIC GRAVITY >=1.030 (1.001-1.030); UROBILINOGEN 0.2 mg/dL (0.2-1.0)
== END 2021-12-25 21:25 | disposition home or self-care (01) ==
LOC: FER 14:13
PROVIDERS: Nurse Practitioner Family
DX: R10.9 Unspecified abdominal pain (principal); R30.0 Dysuria; I10 Essential (primary) hypertension; Z28.311 Partially vaccinated for COVID-19
CPT/HCPCS: 36415; 80053; 81003; 85025; 99283

== ENCOUNTER 2022-01-10 16:37 | Emergency (ER) | payer MEDICARE, OTHER ==
[2022-01-10 18:48] LABS: BILIRUBIN NEGATIVE (NEGATIVE); BLOOD NEGATIVE Ery/uL (NEGATIVE); CLARITY CLEAR (CLEAR); COLOR YELLOW (YELLOW); GLUCOSE (U) NORMAL (NORMAL); LEUKOCYTES NEGATIVE Leu/uL (NEGATIVE); NITRITE NEGATIVE (NEGATIVE); PROTEIN NEGATIVE (NEGATIVE); SPECIFIC GRAVITY 1.025 (1.001-1.030); UROBILINOGEN 0.2 mg/dL (0.2-1.0)
[2022-01-10] MEDS ORDERED: NAPROXEN500 MG PO (19:04)
[2022-01-10] MEDS ORDERED: BACLOFEN 10MG T10 MG PO (19:04)
== END 2022-01-10 19:41 | disposition home or self-care (01) ==
LOC: FER 16:37
PROVIDERS: Nurse Practitioner Family
DX: M54.50 Low back pain, unspecified (principal); I10 Essential (primary) hypertension; G89.29 Other chronic pain
CPT/HCPCS: 81003; 96372; 99283; J1100; J1885

== ENCOUNTER 2022-01-24 12:54 | Emergency (ER) | payer MEDICARE, OTHER ==
[2022-01-24] MEDS ORDERED: FETZIMA20 MG PO (13:34)
[2022-01-24] MEDS ORDERED: BRIN5TAB PO (13:34)
[2022-01-24] MEDS ORDERED: TRAZODONE HCL150 MG PO (13:35)
[2022-01-24] MEDS ORDERED: DILTIAZEM 24HR240 M1 PO (13:35)
[2022-01-24] MEDS ORDERED: QUETIAPINE FUM300 M1 PO (13:35)
[2022-01-24] MEDS ORDERED: FLUOXETINE HCL40 MG PO (13:36)
[2022-01-24] MEDS ORDERED: LAMOTRIGINE200 MG PO (13:37)
== END 2022-01-24 15:36 | disposition home or self-care (01) ==
LOC: FER 12:54
DX: S80.211A Abrasion, right knee, initial encounter (principal); S50.311A Abrasion of right elbow, initial encounter; M54.50 Low back pain, unspecified; M25.552 Pain in left hip; I10 Essential (primary) hypertension; Z88.1 Allergy status to other antibiotic agents; W01.0XXA Fall on same level from slipping, tripping and stumbling without subsequent striking against object, initial encounter; Y92.009 Unspecified place in unspecified non-institutional (private) residence as the place of occurrence of the external cause; Z28.311 Partially vaccinated for COVID-19
CPT/HCPCS: 72100; 72220; 73502; J1885

== ENCOUNTER 2022-02-11 12:42 | Emergency (ER) | payer MEDICARE, OTHER ==
[~2022-02-11 12:42] MED LIST changes: +BRIN5TAB PO; +DILTIAZEM 24HR240 M1 PO; +FETZIMA20 MG PO; +FLUOXETINE HCL40 MG PO; +LAMOTRIGINE200 MG PO; +QUETIAPINE FUM300 M1 PO; +TRAZODONE HCL150 MG PO
== END 2022-02-11 16:46 | disposition home or self-care (01) ==
LOC: FER 12:42
DX: R51.9 Headache, unspecified (principal); I10 Essential (primary) hypertension; Z28.311 Partially vaccinated for COVID-19
CPT/HCPCS: 99283

== ENCOUNTER 2022-02-13 11:33 | Emergency (ER) | payer MEDICARE, OTHER | END 2022-02-13 13:48 | disposition home or self-care (01) | LOC: FER 11:33 | DX: G43.909 Migraine, unspecified, not intractable, without status migrainosus (principal); Z88.1 Allergy status to other antibiotic agents; Z28.311 Partially vaccinated for COVID-19 | CPT/HCPCS: 96372; J1170; J2550 ==

== ENCOUNTER 2022-02-21 16:44 | Emergency (ER) | payer MEDICARE, OTHER | END 2022-02-21 18:40 | disposition home or self-care (01) | LOC: FER 16:44 | DX: G43.909 Migraine, unspecified, not intractable, without status migrainosus (principal); I10 Essential (primary) hypertension | CPT/HCPCS: J0780; J1200; J1885; J2405; J7030 ==

== ENCOUNTER 2022-04-06 13:16 | Emergency (ER) | payer MEDICARE, OTHER ==
[2022-04-06 14:00] LABS: BILIRUBIN NEGATIVE (NEGATIVE); BLOOD NEGATIVE Ery/uL (NEGATIVE); CLARITY HAZY (CLEAR); COLOR YELLOW (YELLOW); GLUCOSE (U) NORMAL (NORMAL); LEUKOCYTES NEGATIVE Leu/uL (NEGATIVE); NITRITE NEGATIVE (NEGATIVE); PROTEIN NEGATIVE (NEGATIVE); SPECIFIC GRAVITY 1.025 (1.001-1.030); UROBILINOGEN 0.2 mg/dL (0.2-1.0); pH 6.5 (5.0-9.0)
[2022-04-06] MEDS ORDERED: FIORICET1 EACH PO (14:33)
== END 2022-04-06 14:45 | disposition home or self-care (01) ==
LOC: FER 13:16
PROVIDERS: Nurse Practitioner Family
DX: G43.809 Other migraine, not intractable, without status migrainosus (principal)
CPT/HCPCS: 81003; 96372; J1100; J1885; J2270; Q0162

== ENCOUNTER 2022-04-23 13:12 | Emergency (ER) | payer MEDICARE, OTHER ==
[2022-04-23 15:18] LABS: BASOPHIL 0.5 % (0-2); EOSINOPHIL 0 % (0-5); HCT 35.4 % (37.0-47.0); HGB 10.6 g/dl (12.5-16.0); MCH 23.6 pg (25.0-31.0); MCHC 29.9 g/dL (32.0-36.0); MCV 78.7 fL (78.0-100.0); MONOCYTE 7.7 % (0-12); MPV 10.3 fL (6.0-9.5); NEUTROPHIL 62.7 % (41-80); NRBC 0; PLT 382 K/uL (150-400); RDW 21.5 % (11.5-14.0); WBC 9.2 K/uL (4.0-10.5)
[2022-04-23 15:45] LABS: BUN 29 mg/dL (7-18); BUN/CREAT RATIO (CALC) 30.9 RATIO; CHLORIDE 107 mmol/L (98-107); CO2 (BICARBONATE) 21 mmol/L (21-32); CREATININE 0.94 mg/dL (0.51-0.95); GLUCOSE 83 mg/dL (74-106); POTASSIUM 4.5 mmol/L (3.5-5.1)
[2022-04-23 16:01] LABS: INFLUENZA A NAA NEGATIVE (NEGATIVE)
[2022-04-23 16:06] LABS: CORONAVIRUS 2019 SARS-COV-2 POSITIVE (NEGATIVE)
[2022-04-23] MEDS ORDERED: PAXLOVID 150-11 EACH PO (16:42)
[2022-04-23] MEDS ORDERED: VENTOLIN HFA IN18 GM INH (16:42)
== END 2022-04-23 16:50 | disposition home or self-care (01) ==
LOC: FER 13:12
PROVIDERS: Nurse Practitioner Family
DX: U07.1 COVID-19 (principal)
CPT/HCPCS: 36415; 71045; 80048; 84484; 85025; 93005; J1170; J1885; U0002

== ENCOUNTER 2022-04-28 15:53 | Emergency (ER) | payer MEDICARE, OTHER ==
[~2022-04-28 15:53] MED LIST changes: +PAXLOVID 150-11 EACH PO
[2022-04-28 19:05] LABS: BILIRUBIN NEGATIVE (NEGATIVE); BLOOD NEGATIVE Ery/uL (NEGATIVE); CLARITY CLEAR (CLEAR); COLOR YELLOW (YELLOW); GLUCOSE (U) NORMAL (NORMAL); LEUKOCYTES NEGATIVE Leu/uL (NEGATIVE); NITRITE NEGATIVE (NEGATIVE); PROTEIN NEGATIVE (NEGATIVE); SPECIFIC GRAVITY <=1.005 (1.001-1.030); UROBILINOGEN 0.2 mg/dL (0.2-1.0)
[2022-04-28 19:21] LABS: BASOPHIL 0.2 % (0-2); EOSINOPHIL 0 % (0-5); HCT 32.5 % (37.0-47.0); LYMPHOCYTE 20.8 % (15-48); MCH 23.3 pg (25.0-31.0); MCHC 30.8 g/dL (32.0-36.0); MCV 75.8 fL (78.0-100.0); MONOCYTE 6.7 % (0-12); MPV 9.7 fL (6.0-9.5); NEUTROPHIL 71.9 % (41-80); NRBC 0; PLT 356 K/uL (150-400); RBC 4.29 M/uL (4.20-5.40); RDW 20.6 % (11.5-14.0); WBC 8.6 K/uL (4.0-10.5)
[2022-04-28 19:54] LABS: AMPHETAMINES NEGATIVE (NEGATIVE); BARBITURATES NEGATIVE (NEGATIVE); ECSTASY (MDMA) NEGATIVE (NEGATIVE); MARIJUANA (THC) NEGATIVE (NEGATIVE); METHADONE POSITIVE (NEGATIVE); OPIATES POSITIVE (NEGATIVE); OXYCODONE NEGATIVE (NEGATIVE)
[2022-04-28 20:11] LABS: BUN/CREAT RATIO (CALC) 17.5 RATIO; CREATININE 0.8 mg/dL (0.51-0.95); POTASSIUM 3.3 mmol/L (3.5-5.1)
== END 2022-04-28 21:07 | disposition home or self-care (01) ==
LOC: FER 15:53
PROVIDERS: Emergency Medicine
DX: R51.9 Headache, unspecified (principal); I10 Essential (primary) hypertension; Z98.2 Presence of cerebrospinal fluid drainage device; Z28.311 Partially vaccinated for COVID-19
CPT/HCPCS: 36415; 70450; 80048; 80305; 81003; 85025

== ENCOUNTER 2022-04-30 18:37 | Emergency (ER) | payer MEDICARE, OTHER ==
[2022-04-30] MEDS ORDERED: TRAMADOL HCL50 MG PO (21:56)
== END 2022-04-30 22:30 | disposition home or self-care (01) ==
LOC: FER 18:37
DX: R51.9 Headache, unspecified (principal); I10 Essential (primary) hypertension; Z28.311 Partially vaccinated for COVID-19; Z88.8 Allergy status to other drugs, medicaments and biological substances; Z79.899 Other long term (current) drug therapy
CPT/HCPCS: 96372; J1885; J2405

== ENCOUNTER 2022-05-14 15:45 | Emergency (ER) | payer MEDICARE, OTHER ==
[~2022-05-14 15:45] MED LIST changes: +TRAMADOL HCL50 MG PO
[2022-05-14 18:09] LABS: BASOPHIL 0.9 % (0-2); BILIRUBIN NEGATIVE (NEGATIVE); BLOOD NEGATIVE Ery/uL (NEGATIVE); CLARITY CLEAR (CLEAR); COLOR YELLOW (YELLOW); EOSINOPHIL 0 % (0-5); GLUCOSE (U) NORMAL (NORMAL); HCT 34.9 % (37.0-47.0); HGB 10.5 g/dl (12.5-16.0); LEUKOCYTES NEGATIVE Leu/uL (NEGATIVE); LYMPHOCYTE 35.2 % (15-48); MCH 23.7 pg (25.0-31.0); MCHC 30.1 g/dL (32.0-36.0); MCV 78.8 fL (78.0-100.0); MONOCYTE 10.4 % (0-12); MPV 10.3 fL (6.0-9.5); NEUTROPHIL 53.1 % (41-80); NITRITE NEGATIVE (NEGATIVE); NRBC 0; PLT 360 K/uL (150-400); PROTEIN NEGATIVE (NEGATIVE); RBC 4.43 M/uL (4.20-5.40); RDW 19.6 % (11.5-14.0); UROBILINOGEN 0.2 mg/dL (0.2-1.0); WBC 5.3 K/uL (4.0-10.5)
[2022-05-14 18:46] LABS: CREATININE 0.84 mg/dL (0.51-0.95)
[2022-05-14 18:47] LABS: POTASSIUM 3.4 mmol/L (3.5-5.1)
[2022-05-14] MEDS ORDERED: NORCO 5-325 TA1 EACH PO (22:23)
== END 2022-05-14 22:46 | disposition home or self-care (01) ==
LOC: FER 15:45
PROVIDERS: Nurse Practitioner Family
DX: R10.9 Unspecified abdominal pain (principal); I10 Essential (primary) hypertension; Z88.1 Allergy status to other antibiotic agents; Z79.899 Other long term (current) drug therapy
CPT/HCPCS: 36415; 80048; 81003; 85025; J1170; J2405; J7030; Q9967

== ENCOUNTER 2022-05-18 15:04 | Emergency (ER) | payer MEDICARE, OTHER ==
[2022-05-18] MEDS ORDERED: PHENERGAN25 M1 PO (20:30)
[2022-05-18] MEDS ORDERED: FIORICET1 EACH PO (20:30)
== END 2022-05-18 22:06 | disposition home or self-care (01) ==
LOC: FER 15:04
DX: G43.909 Migraine, unspecified, not intractable, without status migrainosus (principal); Z98.2 Presence of cerebrospinal fluid drainage device; Z79.899 Other long term (current) drug therapy
CPT/HCPCS: 70450; J1885; Q0169